=== PATIENT | female | born 1995 | race Caucasian/White ===

== ENCOUNTER 2023-06-16 13:51 | Outpatient (CLI) | payer OTHER, SELFPAY | END 2023-06-16 13:52 | disposition home or self-care (01) | PROVIDERS: Visit Provider Nurse Practitioner Family | DX: M54.9 Dorsalgia, unspecified (principal); Z13.228 Encounter for screening for other metabolic disorders | CPT/HCPCS: 80048; 80061; 81015; 82947; 85025; 87086 ==

== ENCOUNTER 2023-10-14 08:06 | Outpatient (CLI) | payer OTHER, SELFPAY ==
--- NOTE | 2023-10-14 08:15 | CRLHL7_ITS ---
For Patients: As a result of the Cures Act, medical imaging exams and procedure reports are released immediately into your electronic medical record. You may view this report before your referring provider. If you have questions, please contact your health care provider. INDICATION: First trimester scan, establish dates. COMPARISON: None. TECHNIQUE: Real-time larsen-scale imaging of the pelvis was performed. FINDINGS: Sonographic imaging demonstrates a single living intrauterine gestation. The embryo demonstrates a regular cardiac rate measuring 176 beats per minute. The embryo`s crown-rump length measurement of 1.7 cm corresponds to a gestational age of 8 weeks 1 day with a sonographic due date of 05/24/2024. There is a normal-appearing yolk sac. There are no gross abnormalities noted within the embryo at this early state of development. The gestational sac has a normal appearance. There is no evidence of a perigestational hemorrhage. The amount of fluid within the sac appears appropriate for gestational age. The cervix is closed. The myometrium appears normal. The ovaries are of normal size. Corpus luteal cyst left ovary. Trace fluid in the pelvis incidentally noted. IMPRESSION: Single living intrauterine with sonographic gestational age 8 weeks 1 day and sonographic due date 05/26/2024. Dictated by Wesley Unger MD @ 10/14/2023 12:46:39 PM (Electronically Signed)
== END 2023-10-14 08:07 | disposition home or self-care (01) ==
LOC: US 08:06
PROVIDERS: Visit Provider Physician Assistant
DX: Z34.91 Encounter for supervision of normal pregnancy, unspecified, first trimester (principal); Z3A.08 8 weeks gestation of pregnancy
CPT/HCPCS: 76817; 86703; 86706; 86803; 86850; 86900; 86901; 87086; 87340; 87491; 87591

== ENCOUNTER 2023-10-14 09:30 | Outpatient (CLI) | payer OTHER, SELFPAY ==
[2023-10-14 14:10] LABS: Chlamydia DNA Amplified* NOT DETECTED (No Detected); GC DNA Amplified* NOT DETECTED (No Detected)
== END 2023-10-14 09:31 | disposition home or self-care (01) ==
PROVIDERS: Visit Provider Physician Assistant
DX: Z34.01 Encounter for supervision of normal first pregnancy, first trimester (principal)
CPT/HCPCS: 86592; 86703; 86704; 86706; 86762; 86787; 86803; 86850; 86900; 86901; 87086; 87340; 87491; 87591

== ENCOUNTER 2024-01-05 09:37 | Outpatient (CLI) | payer OTHER, SELFPAY ==
--- NOTE | 2024-01-05 09:45 | CRLHL7_ITS ---
For Patients: As a result of the Century Cures Act, medical imaging exams and procedure reports are released immediately into your electronic medical record. You may view this report before your referring provider. If you have questions, please contact your health care provider. INDICATION: Evaluate anatomy. COMPARISON: 10/14/2023 TECHNIQUE: Real time larsen scale imaging of the fetus was performed as well as color Doppler analysis of the umbilical vessels. FINDINGS: Sonographic imaging demonstrates a single living intrauterine gestation. Fetus demonstrates a regular cardiac rate of 149 beats per minute. Fetus has a variable position. The placenta lies posteriorly without evidence of placenta previa. Placental edge 4.8 cm from the internal cervical os. Amniotic fluid volume appears normal. Single deepest vertical pocket: 4.3 cm. The cervix is closed and measures 4.3 cm in length. The composite ultrasound gestational age is calculated at 19 weeks 6 days with an estimated sonographic due date of 05/25/2024. The estimated weight is 337 grams which lies at the 32nd %. The following biometric measurements were obtained: Biparietal diameter: 4.2 cm/18 weeks 5 days 3rd% Head circumference: 17.3 cm/19 weeks 6 days 17th% Abdominal circumference: 15.3 cm/20 weeks 3 days 45th% Femur length: 3.2 cm/20 weeks 0 days 29th% The HC/AC ratio measures: 1.13 range (1.08-1.26) On anatomic survey, there is a normal appearance of the cerebral ventricles, cavum septi pellucidi, cisterna magna and cerebellum. The nose, lips, and facial profile appear normal. The cervical, thoracic and lumbar spine are well visualized and appear normal. There is a normal four-chamber heart view and the left and right ventricular outflow tracts appear normal. The diaphragm and stomach appear normal. The kidneys and bladder also appear normal. There is a normal three-vessel cord and cord insertion site. The four extremities appear normal. IMPRESSION: Normal OB ultrasound exam with concordance of clinical and sonographic dating. No intrinsic abnormalities noted on anatomic survey. Dictated by Wesley Unger MD @ 01/05/2024 2:45:13 PM (Electronically Signed)
== END 2024-01-05 09:38 | disposition home or self-care (01) ==
LOC: US 09:37
PROVIDERS: Visit Provider Obstetrics & Gynecology
DX: Z34.92 Encounter for supervision of normal pregnancy, unspecified, second trimester (principal); Z3A.19 19 weeks gestation of pregnancy
CPT/HCPCS: 76805

== ENCOUNTER 2024-03-02 10:45 | Outpatient (CLI) | payer OTHER, SELFPAY | END 2024-03-02 10:46 | disposition home or self-care (01) | LOC: NFLDREF 03-04 05:24 | PROVIDERS: Visit Provider Obstetrics & Gynecology | DX: Z34.93 Encounter for supervision of normal pregnancy, unspecified, third trimester (principal); Z3A.28 28 weeks gestation of pregnancy | CPT/HCPCS: 86592 ==

== ENCOUNTER 2024-04-26 09:26 | Outpatient (CLI) | payer OTHER, SELFPAY ==
[2024-04-27 09:59] LABS: Strep B DNA Probe Negative (Negative)
[2024-04-27 10:08] LABS: Strep B Susceptibility Needed? No
== END 2024-04-26 09:27 | disposition home or self-care (01) ==
PROVIDERS: Visit Provider Obstetrics & Gynecology
DX: Z34.03 Encounter for supervision of normal first pregnancy, third trimester (principal)
CPT/HCPCS: 87081; 87653

== ENCOUNTER 2024-05-14 11:40 | Outpatient (CLI) | payer OTHER, SELFPAY ==
[2024-05-14] VITALS (13 sets, daily range): BP systolic 104–127; BP diastolic 51–75; PULSE 72–104; O2SAT 99
[2024-05-14] MEDS: ACETAMINOPHEN 500 MG TABLET 1000 MG PO (12:21)
[2024-05-14 12:30] LABS: Hematocrit 40.3 % (33.0-51.0); Hemoglobin* 13.7 gm/dL (12.0-16.0); Mean Corpuscular HGB Conc 34 gm/dL (32-36); Mean Corpuscular Hemoglobin 32 pg (26-34); Mean Corpuscular Volume 93 fL (80-100); Platelet Count* 230 K/uL (140-440); Red Blood Count 4.33 m/uL (4.00-5.20); White Blood Count* 11.65 K/uL (4.50-11.00)
[2024-05-14 12:41] LABS: Slide Review Reflex No
[2024-05-14 12:43] LABS: Aspartate Amino Transferase* 40 U/L (12-35); Creatinine* 0.6 mg/dL (0.5-1.5); Estimated Glomerular Filt Rate 126 ml/min
[2024-05-14 12:44] LABS: Alanine Aminotransferase* 27 U/L (4-35); Blood Urea Nitrogen* 16 mg/dL (5-24)
[2024-05-14 12:45] LABS: Creatinine Urine 32.6 mg/dL; Protein Creatinine Ratio Urine 0.49 (0-0.19); Total Protein Urine 16 mg/dL
--- NOTE | 2024-05-14 15:11 | PC.OBNST ---
NST Note NST Note Start: 05/14/24 12:24 Freq: ONCE Status: Active Protocol: Document 05/14/24 15:00 HCR (Rec: 05/14/24 15:09 HCR [id number]) NST Note 1 Para (# of births) 0 EDC 05/21/24 Gestational Age In Weeks & Days 39 Weeks & 0 Days Patient Presented with Complaint(s) of Other Other Complaints Sent from clinic for serial BP 's and pre-e labs due to one elevated BP and CASTRO. Reactive Yes Appropriate for Gestational Age Yes CRISTHIAN Velasquez, RN Date 05/14/24 Reactive Yes Appropriate for Gestational Age Yes CRISTHIAN Raya, RN Date 05/14/24 OB NST charge Yes Complete NST Note via Write Note Yes The provider's electronic signature indicates the NST is reactive/appropriate for gestational age. *Note to provider: If an addendum is required, open the patient's chart and click on the note under the Nurse/Allied Health tab.
== END 2024-05-14 15:01 | disposition home or self-care (01) ==
LOC: OB OUT 11:43 → OB 11:48 → OB OUT 11:49 → OB 11:54
PROVIDERS: Obstetrics & Gynecology; Visit Provider Obstetrics & Gynecology
DX: O26.893 Other specified pregnancy related conditions, third trimester (principal); R03.0 Elevated blood-pressure reading, without diagnosis of hypertension; R51.9 Headache, unspecified; Z3A.39 39 weeks gestation of pregnancy
CPT/HCPCS: 36415; 59025; 82565; 82570; 84156; 84450; 84460; 84520; 85027; G0463; A9270

== ENCOUNTER 2024-05-17 06:46 | Inpatient (IN) | payer OTHER, SELFPAY ==
[2024-05-17] VITALS (64 sets, daily range): BP systolic 106–155; BP diastolic 55–90; PULSE 62–111; RESP 15–17; TEMP 36.6–37.2; O2SAT 98–100; BMI 27.9
[2024-05-17 07:45] LABS: Basophils Absolute Auto 0.01 K/uL (0.00-0.30); Basophils Percent Auto 0.1 % (0.0-3.0); Eosinophils Absolute Auto 0.08 K/uL (0.00-0.50); Eosinophils Percent Auto 0.9 % (0.0-7.0); Hematocrit 37.3 % (33.0-51.0); Hemoglobin* 12.8 gm/dL (12.0-16.0); Immature Granulocytes Abs Auto 0.01 K/uL (0.00-0.30); Immature Granulocytes Pct Auto 0.1 %; Lymphocytes Percent Auto 19.8 % (20-44); Mean Corpuscular HGB Conc 34 gm/dL (32-36); Mean Corpuscular Hemoglobin 32 pg (26-34); Mean Corpuscular Volume 93 fL (80-100); Monocytes Percent Auto 8.1 % (0.0-11.0); Neutrophils Absolute Auto 6.37 K/uL (1.7-7.0); Platelet Count* 207 K/uL (140-440); RDW Coefficient of Variation % 12.9 % (11.5-15.5); Red Blood Count 4.03 m/uL (4.00-5.20); White Blood Count* 8.98 K/uL (4.50-11.00)
[2024-05-17 07:49] LABS: Slide Review Reflex No
[2024-05-17] MEDS: LACTATED RINGERS 1000 ML 1,000 ML 125 ML IV ×2 (07:52→17:19)
--- NOTE | 2024-05-17 07:52 | PM.OBHPLI ---
OB - H&P: HPI Labor/Induction History of Present Illness Time Seen by Provider: 07:52 Date Seen: 05/17/24 Chief Complaint: Elective IOL Chief complaint: Maternity Narrative: Agnes Gutierrez is a 28 year old female at 39w3d GA by LMP seen for elective IOL. is complicated by history of recurrent UTI and elevated BP x1 without a diagnosis of hypertension. Agnes is feeling well today with no acute concerns. Feels she lost her mucus plug over the weekend. Denies regular/painful uterine contractions, vaginal bleeding or leaking of fluid. Endorses active movement. Intermittent headaches, resolved with rest/Tylenol. No vision changes or right upper quadrant pain. Specific Issues/Plans [id number]: neg, girl! H&P done by Dr. Rossi on 05/03/2024. -history of recurrent UTIs -Rubella non-immune MMR PP - Isolated elevated BP at 39 weeks > triage Ultrasounds: 01/04 = 20 3/7 weeks. Posterior placenta without previa, three-vessel cord, SDP 4.3 cm, EFW 32%, AC 45%, BPD 3% but HC 17%, FL 29% FLU: DECLINES Covid: DECLINES RSV: 04/12/24 TDAP: 03/29/24 Meds Home Medications and Allergies Home Medications ?Medication ?Instructions ?Recorded ?Confirmed ?Type docosahexaenoic acid 200 mg mg PO 10/14/23 05/14/24 History capsule ( DHA) fenofibric acid (choline) 45 mg 90 mg PO QDAY 10/14/23 05/14/24 History capsule,delayed release metronidazole 1 % topical cream 1 applic topical BID 03/29/24 05/14/24 History Allergies Allergy/AdvReac Type Severity Reaction Status Date / Time No Known Drug Allergies Allergy Verified 05/14/24 12:22 OB - H&P: Exam Physical Exam: Vital signs: Temp Pulse Resp BP Pulse Ox 99 F 93 17 127/72 98 05/17/24 06:58 05/17/24 06:58 05/17/24 06:58 05/17/24 06:58 05/17/24 07:00 Narrative: General: Alert and oriented, no acute distress Psych: Appropriate mood and affect Abdomen: Gravid. EFW 3300g by Jessy. Cervix: 2.5/70/-1, cephalic by SVE FHR: Category 1. Baseline 140bpm, moderate variability, 15x15 accels present and decelerations absent. [place]: Irregular contractions. OB - Results Labs Labs: Short CBC 05/17/24 Range/Units 07:32 WBC 8.98 (4.50-11.00) K/uL Hgb 12.8 (12.0-16.0) gm/dL Hct 37.3 (33.0-51.0) % Plt Count 207 (140-440) K/uL OB - Problem Based A/P Additional Plan (1) : Status: Acute (2) GERD (gastroesophageal reflux disease): Status: Acute (3) Elevated blood pressure reading without diagnosis of hypertension: Status: Acute Plan Agnes is a 28-year-old at 39 weeks 3 days gestation admitted for elective induction of labor. is complicated by history of recurrent UTI and elevated blood pressure x1, no diagnosis of hypertension. - Cervix is 2.5/70/-1, plan to start induction with Pitocin. Titrate Pitocin at 2 milliunits per minute every 30 minutes pending heart and toco data. - Anticipate next cervical exam in 4 hours, sooner as clinically indicated. Likely AROM as next step in induction. - BT B+, T/S pending - GBS negative
[2024-05-17] MEDS: OXYTOCIN 30 unit/500 ML in NS 30 UNIT/500 ML BAG IVPB (07:53)
[2024-05-17] MEDS: LACTATED RINGERS 1000 ML 1,000 ML 1200 ML IV ×2 (15:21→16:31)
[2024-05-17] MEDS: ONDANSETRON 2 MG/ML inj 4 MG IV (15:35)
[2024-05-17] MEDS: LIDOCAINE 2% (PF) 5 ML VIAL EPIDURAL (15:45)
[2024-05-17] MEDS: ROPIVACAINE 0.2% 100 ml 100 ML 12 MG EPIDURAL (15:50)
--- NOTE | 2024-05-17 15:58 | P.ANBPRC_ITS ---
[facility] Medical History Amenorrhea ?N91.2 - Amenorrhea, unspecified (ICD-10) Surgical History Status post lateral meniscus repair ?Z98.890 - Other specified postprocedural states (ICD-10) History of tonsillectomy and adenoidectomy ?Z90.89 - Acquired absence of other organs (ICD-10) Family History Paternal Grandmother High blood pressure High cholesterol Father High cholesterol Paternal Grandfather High cholesterol Family/Other High cholesterol Aunt Endometriosis Social History Narrative: Occupation: Account Analyst. Marital status: . Quaker/cultural needs: no. Chemical or radiation exposure: no. Pre- tobacco use: no. Pre- alcohol use: 2/day. Current tobacco use: no. Current alcohol use: no. Recreational drug use: no Dietary restrictions: no. Blood transfusion acceptable in an emergency: yes. PSYCHOSOCIAL HISTORY: History of depression or currently depressed: no. Current or past physical, emotional, or sexual mistreatment: no. Problems that will make it hard to make it to appointments: no. What is your current living situation?: I presently have a place to live Problems where you live: no known problems In the past 12 months, utilities in danger of being shut off: no In past 12 months, lack of transportation kept you from medical appts, meetings, work, or getting things needed for daily living: no How hard is it for you to pay for the very basics like food, housing, medical care, and heating: not very hard In the past 12 mos, have been you worried that your food would run out before you had money to buy more?: never true In the past 12 mos, the food you bought just didn't last and you didn't have money to buy more?: never true Smoking Status: Never smoker How often does anyone, including family, friends and others, physically hurt you : never How often does anyone, including family, friends and others, insult or talk down to you: never How often does anyone, including family, friends and others, threaten you with harm: never How often does anyone, including family, friends and others, scream or curse at you: never Meds Home Medications and Allergies Home Medications ?Medication ?Instructions ?Recorded ?Confirmed ?Type docosahexaenoic acid 200 mg 200 mg PO DAILY 10/14/23 05/17/24 History capsule ( DHA) fenofibric acid (choline) 45 mg 90 mg PO QDAY 10/14/23 05/17/24 History capsule,delayed release metronidazole 1 % topical cream 1 applic topical BID 03/29/24 05/17/24 History Allergies Allergy/AdvReac Type Severity Reaction Status Date / Time No Known Drug Allergies Allergy Verified 05/17/24 07:59 Results Labs Labs: Laboratory Results - last 24 hr 05/17/24 07:32 WBC 8.98 RBC 4.03 Hgb 12.8 Hct 37.3 MCV 93 MCH 32 MCHC 34 RDW Coeff of Prabha 12.9 Plt Count 207 Neut % (Auto) 71.0 Lymph % (Auto) 19.8 L [place] % (Auto) 8.1 Eos % (Auto) 0.9 Baso % (Auto) 0.1 Neut # (Auto) 6.37 Lymph # (Auto) 1.80 [place] # (Auto) 0.70 Eos # (Auto) 0.08 Baso # (Auto) 0.01 Abs Immat Gran (auto) 0.01 Imm/Tot Granulo (auto) 0.1 Blood Type B Positive Vital Signs Vital Signs: Last Vital Signs Temp 98.5 F 05/17/24 14:23 Pulse 74 05/17/24 15:56 Resp 16 05/17/24 14:23 BP 126/74 05/17/24 15:56 Pulse Ox 100 05/17/24 15:44 Weight: 80.921 kg Height: 170.18 cm Anesthesia Procedures Epidural Insertion Patient Location: OB Start Time: 15:15 Stop Time: 16:15 Start Date: 05/17/24 Stop Date: 05/17/24 Reason for Block: procedure for pain Patient Position: sitting Performed By: Nixon Bernal Preanesthetic Checklist: IV checked, risks and benefits discussed, monitors and equipment checked, pre-op evaluation, timeout performed and anesthesia consent Prep: chlorhexidine gluconate Monitoring: blood pressure monitoring, continuous pulse oximetry and heart rate Approach: midline Vertebral Space: lumbar (1-5) Epidural Technique: TELLY saline Needle Type: Tuohy needle Injection Technique: continuous catheter Needle gauge: 17 Needle Length (cm): 10 cm Needle Insertion Depth (cm): 6 Catheter Gauge: 19 Catheter Type: multi-orifice Catheter at skin depth (cm): 12 Test Dose Result: negative and lidocaine 1.5% with epinephrine 1 to 200,000
[2024-05-17] MEDS: PHENYLEPHRINE 100 MCG/ML SYRINGE IVP ×2 (16:11→16:27)
--- NOTE | 2024-05-17 20:33 | PM.OBPNL ---
Subjective Time Seen by Provider: 14:10 Date Seen: 05/17/24 Narrative: Delayed documentation due to patient care. Patient was last rounded on at 1200, when cervix was 3/80/-1. Pitocin was ongoing at 12mu/min - reviewed next step in her labor course to include AROM versus continue Pitocin titration with close interval re-evaluation. Agnes was hoping to be further dilated before breaking her bag of water, where we decided to continue Pitocin titration for 2 hours and re-evaluate with likely amniotomy at next check. On re-evaluation, she noted her contractions and increased a bit. She still describes family cramping, occurring every 2 minutes. Denies vaginal bleeding or leaking of fluid. Objective Exam: General: Alert and oriented, no acute distress Psych: Appropriate mood and affect Abdomen gravid NST: Category 1 [place]: Grady Q 2 minutes Cervix: 3.5/80/-1, AROM performed with return of small volume clear fluid. Vital Signs: Last Vital Signs Temp 98.6 F 05/17/24 18:29 Pulse 88 05/17/24 20:28 Resp 16 05/17/24 18:29 BP 129/68 05/17/24 20:28 Pulse Ox 99 05/17/24 16:31 Plan Plan: Agnes is a 28-year-old at 39 weeks 3 days gestation ongoing elective induction of labor. is complicated by elevated blood pressure without a diagnosis of hypertension, GERD. Labor course has included Pitocin and now AROM. Plan to hold her Pitocin, then modify as needed pending heart rate and toco data. Patient desires an epidural, where she is free to request this when desired. Anticipate next cervical exam of 4 hours, sooner as clinically indicated.
--- NOTE | 2024-05-17 20:37 | W.PM.VAGDEL1 ---
Procedure Procedure Done: Global Events: Pre-Eclampsia and Labor Induction Delivery augmentation: rupture of membranes Delivery monitor: external FHT Route of delivery: Laceration description: Perineal - 1st Degree Delivery repair: Vicryl Estimated blood loss (mL): 200 Anesthesia type: Epidural Disposition: floor Complications: None Narrative: Agnes Gutierrez is a 28 yo G 1 P 0 at 39 w 3 d GA admitted for elective induction of labor. is complicated by GERD and elevated blood pressure without a diagnosis of hypertension. Intrapartum, she had 2 mild range blood pressures meeting criteria for preeclampsia without severe features. heart tones on admission were category 1. Her labor was induced with Pitocin and epidural was utilized for pain management. Status of bag of almanzar: AROM was performed intrapartum with return of clear fluid. heart tones during active labor were category 1 and rarely category 2. She was complete at 1914 and started pushing at 1941. She made excellent descent throughout the second stage of labor, and had a normal spontaneous vaginal delivery at 2005. heart tones during second stage of labor were category 1 and 2. Baby delivered OA, restituted YASMANY and the anterior and posterior shoulders delivered without difficulty. Nuchal cord: absent. The cord was clamped and cut after delayed cord clamping. Active management of the third stage occurred with IV pitocin and gentle cord traction and the placenta delivered spontaneous and intact at 2011. Cord gases sent: no Cord blood sent for ABO: no details: - Liveborn female fetus at 2005 - weight: pending - APGARs were 8 and 9 at 1 and 5 minutes respectively Perineum and vagina were inspected, and the following lacerations were noted: 1st degree perineal laceration, tiny right periurethral abrasion. Repair of the 1st degree was completed in the usual fashion with 3-0 Vicryl under epidural analgesia. The right periurethral abrasion did not require repair. Excellent hemostasis was noted. The following counts were correct: sponges, needles, instruments. Mother and in stable condition following the .
[2024-05-17 21:44] LABS: Aspartate Amino Transferase* 27 U/L (12-35); Creatinine* 0.6 mg/dL (0.5-1.5); Est. Creatinine Clearance* 136.96; Estimated Glomerular Filt Rate 126 ml/min
[2024-05-17 21:45] LABS: Alanine Aminotransferase* 21 U/L (4-35); Blood Urea Nitrogen* 12 mg/dL (5-24)
[2024-05-17 21:47] LABS: Hemoglobin* 13.2 gm/dL (12.0-16.0); Mean Corpuscular HGB Conc 34 gm/dL (32-36); Mean Corpuscular Hemoglobin 31 pg (26-34); Mean Corpuscular Volume 93 fL (80-100); Platelet Count* 209 K/uL (140-440); White Blood Count* 13.96 K/uL (4.50-11.00)
[2024-05-17 22:10] LABS: Slide Review Reflex No
[2024-05-17] MEDS: ACETAMINOPHEN 500 MG TABLET 1000 MG PO (22:58)
[2024-05-18 03:48] VITALS: BP 126/74; PULSE 71; RESP 16; TEMP 36.9; O2SAT 96
[2024-05-18 07:15] LABS: Hemoglobin* 13.5 gm/dL (12.0-16.0)
[2024-05-18 08:03] VITALS: BP 115/72; PULSE 73; RESP 16; TEMP 36.8; O2SAT 97
[2024-05-18] MEDS: DOCUSATE SODIUM 100 MG CAPSULE PO (08:14)
[2024-05-18] MEDS: ACETAMINOPHEN 500 MG TABLET 1000 MG PO ×2 (08:14→17:08)
--- NOTE | 2024-05-18 08:27 | P.OBPN_ITS ---
OB - PN:Subj Subjective Date Seen: 05/18/24 Narrative: Agnes is a 28 year old who was admitted for elective IOL and proceeded to have a vaginal with a 1st degree laceration that was repaired. She was diagnosed with preeclampsia without severe features. On the third a mild e levation of AST was noted at 40, but it had normalized on the 6th at 27. The patient feels well.? The pain is well controlled with current medications.? She has no new complaints.? Urinary output is adequate and she is voiding without difficulty.? Has a good appetite, is tolerating a general diet, has not noted flatus, and has not had a bowel movement.? Has scant amount of rubra lochia.? She is ambulating well. She is and reports it is going well.? Pt was showering when rounds were completed, so no exam done. OB - PN: Obj Exam Physical Exam: Vital signs: Temp Pulse Resp BP Pulse Ox O2 Del Method 98.3 F 73 16 115/72 97 Room Air 05/18/24 08:03 05/18/24 08:03 05/18/24 08:03 05/18/24 08:03 05/18/24 08:03 05/18/24 08:03 Narrative: GENERAL APPEARANCE:? normal affect, alert, no distress MOOD:? appropriate OB - PN: Obj Data Labs Labs: Laboratory Results - last 24 hr 05/17/24 05/17/24 05/18/24 07:32 20:40 06:50 WBC 13.96 H RBC 4.20 Hgb 13.2 13.5 Hct 39.0 MCV 93 MCH 31 MCHC 34 Plt Count 209 BUN 12 Creatinine 0.6 Estimated Creat Clear 136.96 Estimated GFR 126 AST 27 ALT 21 Blood Type B Positive OB - PN: A/P Delivery Assessment and Plan (1) (normal spontaneous vaginal delivery): Status: Acute (2) First degree perineal laceration during delivery: Status: Acute (3) care and examination of lactating mother: Status: Acute (4) Pre-eclampsia affecting childbirth: Status: Acute Plan Comments: PP day #1 Routine care Normotensive at this time May see as desired Anticipate discharge 05/19/2024
[2024-05-18] MEDS: IBUPROFEN 600 MG TABLET PO ×2 (11:00→21:21)
--- NOTE | 2024-05-18 11:08 | PM.ANPOST ---
Post Anesthesia Note Post Anesthesia Note Patient seen: Inpatient Respiratory Status: adequate Cardiovascular Status: adequate Mental Status: baseline Pain: adequate Temp: baseline Anesthetic awareness: N/A Complications: none Follow care: none
[2024-05-18 13:29] VITALS: BP 111/68; PULSE 73; RESP 16; TEMP 36.7; O2SAT 97
[2024-05-18 16:49] VITALS: BP 123/70; PULSE 69; RESP 16; TEMP 37; O2SAT 97
[2024-05-18 20:29] VITALS: BP 118/71; PULSE 81; RESP 18; TEMP 36.6; O2SAT 96
[2024-05-18 23:47] LABS: Rapid Plasma Reagin (RPR) Non Reactive (Non Reactive)
[2024-05-19 00:05] VITALS: BP 123/71; PULSE 63; RESP 16; O2SAT 97
[2024-05-19] MEDS: ACETAMINOPHEN 500 MG TABLET 1000 MG PO ×2 (00:06→09:13)
[2024-05-19 03:52] VITALS: BP 107/62; PULSE 70; RESP 16; TEMP 36.8; O2SAT 97
--- NOTE | 2024-05-19 07:13 | PM.OBDSVD1 ---
DS: Providers Provider Date Seen: 05/19/24 Date of admission: 05/17/24 06:46 Primary care physician: Not a Local Provider Admitting Clinician: Hanna Baig MD Attending Physician on discharge: Malou Bowers CNM DS: Diagnosis Discharge Diagnosis (1) care and examination of lactating mother: Status: Acute (2) Pre-eclampsia affecting childbirth: Status: Acute Exam Narrative: Exam Narrative: GENERAL APPEARANCE:? normal affect, alert, no distress MOOD:? appropriate CHEST:? clear to auscultation HEART:? regular rate and rhythm ABDOMEN:? soft, non-tender the uterine fundus is at Umbilicus, Midline and is appropriate for the stage of recovery. PERINEUM:? mild edema of the perineum, there is a Perineal Laceration,?1st degree, that is healing well. EXTREMITIES:? normal and no edema Const: Vital Signs, click to edit/add: Vital Signs - 24 hr 05/18/24 08:03 05/18/24 13:29 05/18/24 16:49 Temperature 98.3 F 98.0 F 98.6 F Pulse Rate [Pulse Oximeter] 73 73 69 Respiratory Rate 16 16 16 Blood Pressure [Le ft Arm] 115/72 111/68 123/70 Pulse Oximetry 97 97 97 Oxygen Delivery Me thod Room Air Room Air Room Air 05/18/24 20:29 05/19/24 00:05 05/19/24 03:52 Temperature 97.8 F 98.2 F Pulse Rate [Pulse Oximeter] 81 63 70 Respiratory Rate 18 16 16 Blood Pressure [Le ft Arm] 118/71 123/71 107/62 Pulse Oximetry 96 97 97 Oxygen Delivery Me thod Room Air Room Air Room Air Documenting provider has reviewed patient's vital signs: yes OB - DS: Summary Hospital Course Hospital Course: Agnes is a 28 y.o. G 1 P 1 who was admitted to [facility] for election induction of labor. During labor she had a few elevated BP's and met criteria for pre-eclampsia. ?She had a NVD that was uncomplicated. The patient feels well. ?The pain is well controlled with current medications. ?She has no new complaints. ?She is breast feeding and reports things are going well. the patient has done well.? Vitals have been stable.? She has remained afebrile.? Has a good appetite, is tolerating a general diet. ?She is voiding without difficulty.? She is passing gas and has not had a bowel movement.? She is ambulating and denies any dizziness.? Has small amount of rubra lochia. She is undecided about her plan for contraception. Problems: denies Discharge home with baby.? Follow up in 2 weeks and 6 weeks.? , may see if needed? Hgb 13.5. ? Pre-E diagnosed by elevated BP greater than 4 hours apart? Labs WNL? Discharge home with BP cuff if does not already have one? Follow up in 3-5 days? Call for signs/symptoms of preeclampsia? For pain control of perineum, breast and pelvic pain, take 600 mg Ibuprofen every 6 hours as needed by mouth or 1000 mg acetaminophen (Tylenol) every 6 hours by mouth as needed. You can alternate these so you are taking something every 3 hours as needed. A heating pad can also be used for your abdomen or breasts. You may also take docusate sodium up to twice daily to soften your stools and help to prevent constipation. You may wean off of it when your stools return to normal.? Peripartum Data Infant delivery method: Vacuum Laceration description: Perineal - 1st Degree complications: none [place] Infant Gender: Female Infant Discharge Plan: Home Status at Discharge Functional status at discharge: independent ambulation Overall status at discharge: patient is progressing back to baseline Time Spent with Patient Time attestation: Total time spent providing and/or coordinating discharge services: Time spent: Less than 30 minutes Discharge Plan Discharge Disposition: Home, Self-Care Date of Admission: 05/17/24 06:46 Attending Provider on Discharge: Malou Bowers Primary Care Provider: Provider,Not a Local Condition: Stable Anticipated Discharge Date/Time: 05/19/24 12:00 Discharge Medications: New acetaminophen 500 mg Tablet 1,000 mg PO Q6H PRNQty: 0 0RF docusate sodium 100 mg Capsule 100 mg PO DAILY Qty: 60 0RF ibuprofen 600 mg Tablet 600 mg PO Q6H PRNQty: 60 0RF Continued DHA 200 mg capsule 200 mg PO DAILY fenofibric acid (choline) 45 mg capsule,delayed release(DR/EC) 90 mg PO QDAY metronidazole 1 % cream 1 applic topical BID omeprazole 40 mg capsule,delayed release(DR/EC) 40 mg PO QDAY Qty: 90 2RF (DME) breast pump Device See Rx Instructions .Route Qty: 1 0RF Rx Instructions: As directed Discharge Orders: Discharge Order (Routine); Ordered 05/19/24 Ordered By: Malou Bowers Patient Education: OB Over the Counter Medication Information, OB Vaginal/Breast Feeding Additional Instructions: Discharge instructions were reviewed with the patient including signs and symptoms of infection and home going medications Nothing vaginally for 6 weeks: no tampons or intercourse Off Work or School for 6 weeks Follow [facility] for a BP check?3-5 days Call with BP greater than or equal to 160/110 Severe headache that doesn't improve after taking medications Changes in vision, including temporary loss of vision, blurred vision, and/or light sensitivity Upper abdominal pain (usually under ribs on the right side) 2-week visit: discuss infant feeding concerns, review control options and screen for anxiety/depression. 6-week visit for an annual exam. consultation services are available to all mothers and babies for the first year after delivery.? To make an appointment, please call [phone]. Activity Level: Activity as Tolerated Discharge Diet: Regular Follow Up Appointments: [facility] [Provider Group] Forms: [employer] Info Instructions
[2024-05-19 09:05] VITALS: BP 121/74; PULSE 70; RESP 16; TEMP 36.8; O2SAT 97
[2024-05-19] MEDS: DOCUSATE SODIUM 100 MG CAPSULE PO (09:13)
== END 2024-05-19 11:37 | disposition home or self-care (01) | DRG 807 ==
PROVIDERS: Admitting Provider Obstetrics & Gynecology; Visit Provider Obstetrics & Gynecology
DX: O14.04 Mild to moderate pre-eclampsia, complicating childbirth (principal); Z37.0 Single live birth; O70.0 First degree perineal laceration during delivery; R03.0 Elevated blood-pressure reading, without diagnosis of hypertension; K21.9 Gastro-esophageal reflux disease without esophagitis; Z87.440 Personal history of urinary (tract) infections; Z3A.39 39 weeks gestation of pregnancy
CPT/HCPCS: 01967; 36415; 82565; 84450; 84460; 84520; 85018; 85025; 85027; 86592; 86850; 86900; 86901; 88307; A9270; J2371; J2405; J2795; J7120

== ENCOUNTER 2024-06-11 14:30 | Outpatient (CLI) | payer OTHER, SELFPAY ==
--- NOTE | 2024-06-11 15:28 | W.PM.LAC.MC ---
Consult Note - Mom Date of Visit Date of visit: 06/11/24 Reason for consultation: Assistance Needed (assist with latch, babe coming on and off during feedings), Breast/Nipple Issue and Other (breasts feeling full , almost engorged frequently) Visit Code: Visit Patient's Information Phone number: [phone] Para: 1 Allergies No Known Drug Allergies Allergy (Verified 06/04/24 13:57) Mother's Medical History: Medical History (Updated 06/04/24 @ 20:10 by Hanna Baig MD) First degree perineal laceration during delivery ?O70.0 - First degree perineal laceration during delivery (ICD-10) (normal spontaneous vaginal delivery) ?O80 - Encounter for full-term uncomplicated delivery (ICD-10) Pre-eclampsia affecting childbirth ?O14.94 - Unspecified pre-eclampsia, complicating childbirth (ICD-10) GERD (gastroesophageal reflux disease) ?K21.9 - Gastro-esophageal reflux disease without esophagitis (ICD-10) Amenorrhea ?N91.2 - Amenorrhea, unspecified (ICD-10) Work Plans: return to work september 2024 Delivery Information Delivery type: Vaginal Gestational Age: 39+3 Gestational Weight For Age: AGA Weight: 3.12 kg Discharge Weight: 3.052 kg Percentage weight loss: 2.5 Baby's Information Baby's Age at Visit: 25 days Baby's Provider or Clinic: [facility] Jaundice: No Past Experience Past Experience: No Current Frequency of Day Feedings: every 3 hours Frequency of Night Feedings: about every 4 hours, baby wakes self Both Breasts: Yes (usually) Suck: strong, mostly comfortabe Latch: ok, has been pulling on & off for the last week & it's painful at times Length of Time: 8-10 min 1st side, maybe 5 on 2nd side Goals: as long as possible, maybe EBM after she gets teeth Pumping Pumping: Yes (1x/day for bottle; and if not nurse enough and breast is too full) Quantity Pumped: 4-5 oz/breast Supplementing EBM Supplement: No Formula Supplement: No Baby Elimination Number of Wet Diapers a Day: ea feeding Number of BM a Day: 4-5/day, yellow, seedy Breast/Nipple Condition Breast Information: Breasts are symmetrical with rounded lower quadrants, intramammary distance is less than 1.5 inches. No erythema. Nipples are supple, everted prior to feeding. No problems with plugged ducts or mastitis. Not true engorgement, but breasts often feel full Breast Shape: Round Engorgement: No Interventions for Engorgement: Warm Pack Maternal Nipple Condition - Left: Common Nipple Maternal Nipple Condition - Right: Common Nipple Sore Nipples: Yes (occas) Baby Assessment Skin: Normal Tongue/frenulum: Normal/elastic Palate: Average Lips: Relaxed and Symmetrical Jaw Alignment: Symmetrical Mucosa: [place], moist Onsite Observation Pre-Feed weight: 3.942 kg (up 412gm in 9 days; average of 45 gms/day) Post-Feed weight: 4.072 kg Milk Transferred (mL): 130 Position: Cross cradle Attachment/latch-on achieved: Easily Suck pattern: Suck burst and normal rest Swallow: Audible, consistent Behavior following feed: Alert, content Pre-Nursing Left Nipple: Within Normal Limits Pre-Nursing Right Nipple: Within Normal Limits Post-Nursing Left Nipple: Within Normal Limits Post-Nursing Right Nipple: Within Normal Limits Assessments/Interventions Assessments/Interventions: observation: Babe latched to mom's left breast easily; moved into a suck swallow pattern within less than 1 minute of nursing. Slightly shallow latched, but comfortable for mom; worked to deepen latch a bit and baby tolerated well. Coached mom to hold baby closer to breast to help maintain deeper latch. Babe nursed for 8 minutes and transferred 96 ml of milk. Mom transferred babe to right breast; babe nursed for about 3 minutes and then began pushing on and off as mom was describing as reason for appointment; mom tried pulling baby on closer to maintain latch and babe pushed harder. Babe weighed and had transferred another 34 ml of milk. Mom attempted to latch babe again and babe laying in mom's arm, content, showing no signs of needing to feed more. Mom then snugged her on her chest and babe relaxed and content. Discussed on and off behavior likely due to babe being full and content; supported by weighted feed/volumes When baby takes a bottle, is content with 4 oz and babe took 4.3 oz in this feeding Mom is currently pumping one time a day for a bottle feeding; pumps 4-5 oz milk/breast and babe takes 1/2 of that amount in bottle feeding. If baby does not feed both breasts at a feeding, mom pumps about once a day and gets an additional 4-5 oz as well in about 10 minutes of pumping. Discussed slowly reducing amount pumped to down regulate her supply for her comfort. Since currently pumping 4-5 oz/pump when baby not feed both breasts, can start with pumping only 4 oz for 4-5 days, then 3 oz for 4-5 days, then 2oz for 4-5 days, then 1oz as needed. Monitor baby's behavior at the breast as well as mom's comfort of baby only nurses one side; ;goal is to become less dependent on the pump for comfort and let baby manage the flow and volume needed. When pumping to do a bottle feeding discussed option of continuing to pump 4-5oz from both breasts to feed baby AND have some to store in freezer if desired. Mom can also pump less at this feeding to help the down regulation process; depends on how much milk she wants stored and how open to suggestion her body is to shifting the volume needed. Recommend adjusting slowly to prevent problems with plugged ducts or mastitis and allow her body to readjust to the lower volume needed. Mom also described some slight discomfort with pumping; nipples measure 18mm bilaterally and she is using a 21mm flange size which is appropriate. Recommend she try lining the flange with nipple cream for lubrication; she can also try turning down the suction and/or cycle for the last few minutes and see if this increases her comfort. Education provided: Asymmetric latch technique for wide/deep latch to increase milk, Transfer for baby and increase comfort for mom, Supply/demand nature of milk supply and Pumping for milk management Follow-Up Suggested follow up: Appointment as needed Time Spent Time spent with patient (min): 60 (face to face with patient, and reviewing EMR) Meds Home Medications and Allergies Home Medications ?Medication ?Instructions ?Recorded ?Confirmed ?Type docosahexaenoic acid 200 mg 200 mg PO DAILY 10/14/23 06/04/24 History capsule ( DHA) fenofibric acid (choline) 45 mg 90 mg PO QDAY 10/14/23 06/04/24 History capsule,delayed release metronidazole 1 % topical cream 1 applic topical BID 03/29/24 06/04/24 History Allergies Allergy/AdvReac Type Severity Reaction Status Date / Time No Known Drug Allergies Allergy Verified 06/04/24 13:57
== END 2024-06-11 14:31 | disposition home or self-care (01) ==
LOC: OB LAC 14:31
PROVIDERS: Visit Provider Obstetrics & Gynecology
DX: Z39.1 Encounter for care and examination of lactating mother (principal)
CPT/HCPCS: G0463

== ENCOUNTER 2024-06-30 11:52 | Outpatient (CLI) | payer OTHER, SELFPAY ==
[2024-07-02 04:33] LABS: HPV Source Cervix; HPV, High Risk by TMA Not Detected
== END 2024-06-30 11:53 | disposition home or self-care (01) ==
PROVIDERS: Visit Provider Registered Nurse
DX: Z39.2 Encounter for routine postpartum follow-up (principal); Z12.4 Encounter for screening for malignant neoplasm of cervix; Z11.51 Encounter for screening for human papillomavirus (HPV)
CPT/HCPCS: 87624; 87625; 88141; 88142